=== PATIENT | female | born 1955 | race Caucasian/White ===

== ENCOUNTER → 2020-10-21 | Outpatient (CLI) | payer OTHER | END | disposition home or self-care (01) | LOC: LAB SHORT 08:20 → LAB 08:20 | DX: R39.15 Urgency of urination (principal) | CPT/HCPCS: 87086; 87147 ==

== ENCOUNTER → 2021-02-25 | Outpatient (CLI) | payer OTHER ==
[2021-02-27 09:11] LABS: Stool Occult Bld Immuno 1 Negative (NEGATIVE)
== END | disposition home or self-care (01) ==
LOC: LAB SHORT 14:04
PROVIDERS: Family Medicine
DX: Z12.11 Encounter for screening for malignant neoplasm of colon (principal)
CPT/HCPCS: G0328

== ENCOUNTER → 2021-04-17 | Outpatient (CLI) | payer OTHER | LOC: LAB 15:30 → LAB SHORT 15:30 | DX: N30.01 Acute cystitis with hematuria (principal) | CPT/HCPCS: 87086; 87147 ==

== ENCOUNTER → 2021-06-04 | Outpatient (CLI) | payer OTHER | END | disposition home or self-care (01) | LOC: LAB SHORT 15:49 | DX: N12 Tubulo-interstitial nephritis, not specified as acute or chronic (principal); R82.90 Unspecified abnormal findings in urine | CPT/HCPCS: 87077; 87086; 87186 ==

== ENCOUNTER → 2021-06-07 | Outpatient (CLI) | payer OTHER ==
[2021-06-07 09:54] LABS: BASOPHILS ABSOLUTE AUTO 0.06 K/mm3 (0.00-0.23); BASOPHILS PERCENT AUTO 0 % (0-2); EOSINOPHILS ABSOLUTE AUTO 0.01 K/mm3 (0.00-0.68); EOSINOPHILS PERCENT AUTO 0 % (0-6); Hematocrit 40.4 % (33.0-51.0); Hemoglobin 13.8 g/dL (11.5-16.0); Mean Corpuscular HGB 29.7 pg (26.0-34.0); Mean Corpuscular HGB Conc 34.2 g/dL (31.5-36.5); Mean Corpuscular Volume 87 fL (80-100); Mean Platelet Volume 11.6 fL (9.1-12.4); Platelet Count 179 K/mm3 (150-400); RDW Coefficient Variation 13.2 % (11.7-14.2); RDW Standard Deviation 41.9 fL (35.1-46.3); Red Blood Cell Count 4.64 M/mm3 (3.80-5.20); White Blood Cell Count 17.12 K/mm3 (4.00-11.30)
[2021-06-07 09:57] LABS: IMMATURE GRAN PERCENT AUTO 1 % (0-1); LYMPHOCYTES ABSOLUTE AUTO 1.07 K/mm3 (0.84-5.20); LYMPHOCYTES PERCENT AUTO 6 % (21-46); MONOCYTES ABSOLUTE AUTO 1.24 K/mm3 (0.16-1.47); MONOCYTES PERCENT AUTO 7 % (4-13); NEUTROPHILS ABSOLUTE AUTO 14.54 K/mm3 (1.96-9.15); NEUTROPHILS PERCENT AUTO 85 % (41-73)
[2021-06-07 10:05] LABS: Albumin, Blood 2.4 g/dL (3.4-5.0); Albumin/Globulin Ratio 0.5 (0.8-1.8); Bilirubin, Total 0.9 mg/dL (0.1-1.0); Bun/Creatinine Ratio 17.7 (12.0-20.0); Calcium, Blood 10.1 mg/dL (8.5-10.1); Creatinine, Blood 1.13 mg/dL (0.40-1.00); Globulin, Blood 5.3 g/dL (2.2-4.0); Potassium, Blood 3.3 mmol/L (3.5-5.5); Total Protein, Blood 7.7 g/dL (6.4-8.2)
== END | disposition home or self-care (01) ==
LOC: LAB 08:54 → LAB SHORT 08:54
PROVIDERS: Nurse Practitioner Family
DX: N12 Tubulo-interstitial nephritis, not specified as acute or chronic (principal)
CPT/HCPCS: 80053; 85025

== ENCOUNTER → 2022-06-16 | Outpatient (CLI) | payer OTHER | LOC: LAB 13:40 → LAB SHORT 13:40 | DX: N30.00 Acute cystitis without hematuria (principal) | CPT/HCPCS: 87077; 87086; 87186 ==

== ENCOUNTER → 2022-08-02 | Outpatient (CLI) | payer OTHER | END | disposition home or self-care (01) | LOC: LAB 17:16 → LAB SHORT 17:16 | DX: R39.15 Urgency of urination (principal) | CPT/HCPCS: 87077; 87086; 87147; 87186 ==

== ENCOUNTER → 2022-08-12 | Outpatient (CLI) | payer OTHER | END | disposition home or self-care (01) | LOC: LAB 11:42 → LAB SHORT 11:42 | DX: N39.0 Urinary tract infection, site not specified (principal) | CPT/HCPCS: 87086; 87147 ==

== ENCOUNTER → 2023-05-27 | Outpatient (CLI) | payer OTHER | END | disposition home or self-care (01) | LOC: LAB SHORT 14:55 → LAB 14:55 | DX: R35.0 Frequency of micturition (principal) | CPT/HCPCS: 87086 ==

== ENCOUNTER → 2023-07-13 | Outpatient (CLI) | payer OTHER | END | disposition home or self-care (01) | LOC: LAB SHORT 09:27 → LAB 09:27 | DX: R30.0 Dysuria (principal) | CPT/HCPCS: 87086 ==

== ENCOUNTER → 2023-09-24 | Outpatient (CLI) | payer OTHER | END | disposition home or self-care (01) | LOC: LAB 11:52 → LAB SHORT 11:52 | DX: R30.0 Dysuria (principal); R35.0 Frequency of micturition; R31.9 Hematuria, unspecified | CPT/HCPCS: 87086; 87186 ==

== ENCOUNTER → 2024-06-15 | Outpatient (CLI) | payer OTHER ==
[2024-06-15 14:50] LABS: Stool Occult Bld Immuno 1 Negative (NEGATIVE)
== END ==
LOC: LAB SHORT 12:18 → LAB 12:18
PROVIDERS: Family Medicine
DX: Z12.11 Encounter for screening for malignant neoplasm of colon (principal)
CPT/HCPCS: G0328

== ENCOUNTER 2025-03-11 05:59 | Emergency (ER) | payer OTHER ==
[~2025-03-11] VITALS: Ht 162.6 cm; Wt 77.6 kg
[2025-03-11] MEDS ORDERED: AMLO5 PO (06:19)
[2025-03-11] MEDS ORDERED: OMEP20ER PO (06:19)
[2025-03-11] MEDS ORDERED: OLME20 PO (06:19)
[2025-03-11] MEDS ORDERED: OXYB5 PO (06:20)
[2025-03-11] MEDS ORDERED: TRAM50 (06:22)
[2025-03-11 06:26] LABS: BASOPHILS ABSOLUTE AUTO 0.04 K/mm3 (0.00-0.23); BASOPHILS PERCENT AUTO 1 % (0-2); EOSINOPHILS ABSOLUTE AUTO 0.39 K/mm3 (0.00-0.68); EOSINOPHILS PERCENT AUTO 6 % (0-6); Hematocrit 39.4 % (33.0-51.0); Hemoglobin 13.1 g/dL (11.5-16.0); IMMATURE GRAN ABSOLUTE AUTO 0.01 K/mm3 (0.00-0.10); IMMATURE GRAN PERCENT AUTO 0 % (0-1); LYMPHOCYTES ABSOLUTE AUTO 2.24 K/mm3 (0.84-5.20); LYMPHOCYTES PERCENT AUTO 37 % (21-46); MONOCYTES ABSOLUTE AUTO 0.55 K/mm3 (0.16-1.47); MONOCYTES PERCENT AUTO 9 % (4-13); Mean Corpuscular HGB Conc 33.2 g/dL (31.5-36.5); Mean Corpuscular Volume 85 fL (80-100); NEUTROPHILS ABSOLUTE AUTO 2.90 K/mm3 (1.96-9.15); NEUTROPHILS PERCENT AUTO 47 % (41-73); NRBC ABSOLUTE 0.00 K/mm3 (0.00-0.02); NRBC Auto 0.0 /100 WBC (0.0-0.2); Platelet Count 194 K/mm3 (150-400); RDW Coefficient Variation 14.6 % (11.7-14.2); RDW Standard Deviation 45.3 fL (35.1-46.3)
[2025-03-11 06:44] LABS: Alanine Aminotransfer (ALT/SGP 20.0 U/L (12-78); Albumin, Blood 3.4 g/dL (3.4-5.0); Albumin/Globulin Ratio 0.9 (0.8-1.8); Anion Gap 7.0 mmol/L (3-11); Aspartate Aminotrans (AST/SGOT 16.0 U/L (12-37); Bilirubin, Total 0.5 mg/dL (0.1-1.0); Blood Urea Nitrogen 25.0 mg/dL (8-24); CO2, Blood 26.0 mmol/L (21-32); Calcium, Blood 9.6 mg/dL (8.5-10.1); Chloride, Blood 109.0 mmol/L (98-108); Creatinine, Blood 0.89 mg/dL (0.40-1.00); Globulin, Blood 3.6 g/dL (2.2-4.0); Glucose, Blood 90.0 mg/dL (70-99); Potassium, Blood 3.7 mmol/L (3.5-5.5); Sodium, Blood 138.0 mmol/L (136-145); Total Protein, Blood 7.0 g/dL (6.4-8.2)
[2025-03-11 09:50] VITALS: BP 137/84
== END 2025-03-11 10:30 | disposition home or self-care (01) ==
LOC: ER 05:59
PROVIDERS: Emergency Medicine
DX: R42 Dizziness and giddiness (principal); K44.9 Diaphragmatic hernia without obstruction or gangrene; K80.20 Calculus of gallbladder without cholecystitis without obstruction; I10 Essential (primary) hypertension; K21.9 Gastro-esophageal reflux disease without esophagitis; Z88.0 Allergy status to penicillin; Z79.899 Other long term (current) drug therapy
CPT/HCPCS: 71045; 71260; 80053; 83880; 84484; 85025; 93005; 93010; 99284-25; A9270; Q9967

== ENCOUNTER → 2025-04-07 | Outpatient (CLI) | payer OTHER ==
[~2025-04-07] MED LIST: AMLO5 PO; ATOR10 PO; Diclofenac Pota50 MG PO; OLME20 PO; OMEP20ER PO; OXYB5 PO; TRAM50
[2025-04-09 16:11] LABS: Stool Occult Bld Immuno 1 Negative (NEGATIVE)
== END ==
LOC: LAB SHORT 13:08 → LAB 13:08
PROVIDERS: Family Medicine
DX: Z12.11 Encounter for screening for malignant neoplasm of colon (principal)
CPT/HCPCS: G0328

== ENCOUNTER 2025-04-11 12:50 | Day surgery (SDC) | payer OTHER ==
[2025-04-11] VITALS (12 sets, daily range): BP systolic 114–179; BP diastolic 57–111
[~2025-04-11] VITALS: Ht 165.1 cm; Wt 79.4 kg
[~2025-04-11 12:50] MED LIST changes: -ATOR10 PO; -Diclofenac Pota50 MG PO
[2025-04-11] MEDS ORDERED: ATOR10 PO (13:12)
[2025-04-11] MEDS ORDERED: Diclofenac Pota50 MG PO (13:14)
--- NOTE | 2025-04-11 13:30 | NUR ---
History, Chart, Medications and Allergies reviewed before start of procedure. Pre-Op teaching done. Pt verbalizes understanding. Patient confirms NPO status and agrees with scheduled surgery.
--- NOTE | 2025-04-11 14:13 | NUR ---
04/11/25 1413 Linda Alfaro CONFIRMED AND REVIEWED H&P, MEDCICATIONS, ALLERGIES, MEDICAL HISTORY, RESPIRATORY HISTORY, VITAL SIGNS, 3-LEAD EKG, CONSENTS, AND PHYSICIAN ORDERS. PATIENT CONFIRMS NPO STATUS AND AGREES WITH SCHEDULED PROCEDURE. MONITOR INTACT WITH CONTINUOUS PULSE OXIMETRY, CAPNOGRAPHY, 3-LEAD EKG, INTERMITTENT BP. SUPPLEMENTAL O2 TO BE TITRATED THROUGHOUT PROCEDURE TO MAINTAIN O2 SATURATION ABOVE 90%. PATIENT DETERMINED TO BE ASA APPROPRIATE FOR PROPOFOL SEDATION PRIOR TO START OF PROCEDURE BY DR. CANELA.
[2025-04-11] MEDS ORDERED: Benzocaine Oral Spray 0.5ML UD ONE (14:16)
--- NOTE | 2025-04-11 15:10 | NUR ---
Patient up to Ambulate independently. Gait steady. Discharge instructions reviewed with patient. Patient verbalizes understanding. Copy given to patient to take home, WE[facility] FAMILY. Patient States Post-Procedure ride home has been arranged. Discharged via wheelchair to private car for ride home. PT TOLERATING PO, REPORTS READY TO GO HOME.
== END 2025-04-11 15:10 | disposition home or self-care (01) ==
LOC: ORD 12:50 → ORSCMMR 12:50 → ORD 15:10 → ORSCSDS 15:15
PROVIDERS: Surgery
PROC: 0DJ08ZZ Inspection of Upper Intestinal Tract, Via Natural or Artificial Opening Endoscopic (ICD-10-PCS; principal; 2025-04-11 14:30)
DX: K44.9 Diaphragmatic hernia without obstruction or gangrene (principal); K21.9 Gastro-esophageal reflux disease without esophagitis; G47.33 Obstructive sleep apnea (adult) (pediatric); E78.5 Hyperlipidemia, unspecified; Z87.891 Personal history of nicotine dependence; Z79.899 Other long term (current) drug therapy
CPT/HCPCS: A9270; J2704; J7120

== ENCOUNTER 2025-04-30 08:12 | Day surgery (SDC) | payer OTHER ==
[~2025-04-30] VITALS: Ht 165.1 cm; Wt 80.7 kg
[2025-04-30] VITALS (13 sets, daily range): BP systolic 123–137; BP diastolic 74–88
[~2025-04-30 08:12] MED LIST changes: +ATOR20 PO; +CALCIUM 500 MG1 EAC7 PO; +Diclofenac Pota50 MG PO; +FentaNYL Citrate 50 MCG/ML 2 ML Injection ONE; +MULTI-VITAMIN1 EAC2 PO; +Midazolam HCl 1MG / ML 2ML Vial ONE; +THERA-D2000 UNIT PO; -TRAM50; +TRAM50 PO
[2025-04-30] MEDS ORDERED: Bupivacaine 0.25% Epi 1:200000 30 ML Vial ONE (08:55)
[2025-04-30] MEDS ORDERED: Rocuronium Bromide 10 MG/ML 5ML Injection IV ONE ×2 (09:00→10:25)
[2025-04-30] MEDS ORDERED: Ondansetron HCl 2 MG / ML 2ML Vial ONE (09:32)
[2025-04-30] MEDS ORDERED: Dexamethasone Sod Phos 10 MG/ML 1ML VIAL ONE (09:32)
[2025-04-30] MEDS ORDERED: ePHEDrine Sulfate 50 MG/ML 1ML Injection ONE (09:45)
--- NOTE | 2025-04-30 09:55 | NUR ---
04/30/25 0955 Kindra Murillo NO PREOP ANTIBIOTICS ORDERED PER .
[2025-04-30] MEDS ORDERED: Sugammadex Sodium 200 MG/2ML SDV (100 MG/ML) ONE (10:24)
[2025-04-30] MEDS ORDERED: Ketorolac Tromethamine 30mg Vial ONE (10:25)
[2025-04-30] MEDS ORDERED: Albuterol 2.5 MG/3 ML VIAL INH PRN (11:10)
[2025-04-30] MEDS ORDERED: HYDROmorphone HCl/Pf 1MG SYR IV PRN ×3 (11:15→12:15)
[2025-04-30] MEDS ORDERED: Ondansetron HCl 2 MG / ML 2ML Vial IV PRN ×2 (11:15→12:15)
[2025-04-30] MEDS ORDERED: FentaNYL Citrate 50 MCG/ML 2 ML Injection IV PRN ×2 (11:15)
[2025-04-30] MEDS ORDERED: HYDROmorphone HCl/Pf 1MG SYR ONE (11:16)
[2025-04-30] MEDS ORDERED: Prochlorperazine Edisylate 10 mg Vial IV PRN (12:15)
[2025-04-30] MEDS ORDERED: FentaNYL Citrate 50 MCG/ML 2 ML Injection ONE (12:30)
--- NOTE | 2025-04-30 13:13 | NUR ---
PT ARRIVED TO RM 224 FROM PACU. TRANSFERRED PT FROM [facility] TO BED. ORIENTED TO USE OF CALL LIGHT. LAP INCISIONS TO ABD X4 W TISS ADHESIVE CDI. VSS. LCA. HRR. ABD SOFT. PROVIDED APPLE JUICE AND WATER. CALL LIGHT IN REACH.
--- NOTE | 2025-04-30 14:12 | NUR ---
TURNED OVER CARE TO ADOLFO Stephenson RN.
--- NOTE | 2025-04-30 19:36 | NUR ---
SHIFT SUMMARY SINCE ASSUMPTION OF CARE, PT HAS DONE WELL. UP IN ROOM & UP TO USE BATHROOM x 2. PAIN IMPROVED SINCE OXY WAS GIVEN. ABD SOFT.
[2025-05-01 04:41] VITALS: BP 142/88
--- NOTE | 2025-05-01 05:20 | NUR ---
NOC SUMMARY- PT PAIN MANAGED WELL. PT HAS BEEN AMBULATORY AND IS USING BATHROOM INDEPENDANTLY. PT LAP SITES C/D/I. PT IS EAGER TO GO HOME. PT TOLERATING PO INTAKE. CALL LIGHT IN REACH.
[2025-05-01 06:56] LABS: Hematocrit 38.4 % (33.0-51.0); Hemoglobin 12.4 g/dL (11.5-16.0)
[2025-05-01 07:47] VITALS: BP 131/87
[2025-05-01] MEDS ORDERED: Enoxaparin 40 MG/0.4 ML SYR SC SCH (09:00)
[2025-05-01] MEDS ORDERED: OXYC5 PO (10:07)
--- NOTE | 2025-05-01 10:35 | NUR ---
DISCHARGE NOTE PT IS A/OX4, VSS. TOLERATING INTAKE W/ NO N/V, FOLLOWING DIET RESTRICTIONS. VOIDING WELL. SURGICAL SITES C/D/I. PROVIDED DC EDUCATION, PT AND SPOUSE VERBALIZED UNDERSTANDING OF EDUCATION. MEDICATIONS SENT TO PHARMACY BY SURGEON, PT VERBALIZED UNDERSTANDING. ESCORTED OUT VIA WC.
== END 2025-05-01 10:25 | disposition home or self-care (01) ==
LOC: ORSCMMR 08:12 → ORD 09:30 → ORSCMMR 09:30 → SURS 12:55 → ORSCMMR 05-01 10:25
PROVIDERS: Surgery
PROC: 8E0W4CZ Robotic Assisted Procedure of Trunk Region, Percutaneous Endoscopic Approach (ICD-10-PCS; principal; 2025-04-30 09:30)
PROC: 0BUT4JZ Supplement Diaphragm with Synthetic Substitute, Percutaneous Endoscopic Approach (ICD-10-PCS; principal; 2025-04-30 09:30)
DX: K44.9 Diaphragmatic hernia without obstruction or gangrene (principal); K21.9 Gastro-esophageal reflux disease without esophagitis; I10 Essential (primary) hypertension; E78.5 Hyperlipidemia, unspecified; Z79.899 Other long term (current) drug therapy; Z87.891 Personal history of nicotine dependence
CPT/HCPCS: 36415; 85014; 85018; A9270; C1781; J1100; J1171; J1650; J1885; J2250; J2405; J2704; J3010; J7120

== ENCOUNTER 2025-06-12 14:13 | Observation (INO) | payer OTHER ==
[~2025-06-12] VITALS: Ht 162.6 cm; Wt 75.0 kg
[~2025-06-12 14:13] MED LIST changes: -FentaNYL Citrate 50 MCG/ML 2 ML Injection ONE; -Midazolam HCl 1MG / ML 2ML Vial ONE; +OXYC5 PO
[2025-06-12] MEDS ORDERED: NS 1,000 ML IV SCH ×2 (14:30→23:25)
[2025-06-12 14:50] LABS: BASOPHILS ABSOLUTE AUTO 0.06 K/mm3 (0.00-0.23); BASOPHILS PERCENT AUTO 1 % (0-2); EOSINOPHILS ABSOLUTE AUTO 0.21 K/mm3 (0.00-0.68); EOSINOPHILS PERCENT AUTO 3 % (0-6); Hematocrit 38.6 % (33.0-51.0); Hemoglobin 12.6 g/dL (11.5-16.0); IMMATURE GRAN ABSOLUTE AUTO 0.02 K/mm3 (0.00-0.10); IMMATURE GRAN PERCENT AUTO 0 % (0-1); LYMPHOCYTES ABSOLUTE AUTO 1.87 K/mm3 (0.84-5.20); LYMPHOCYTES PERCENT AUTO 29 % (21-46); MONOCYTES ABSOLUTE AUTO 0.49 K/mm3 (0.16-1.47); MONOCYTES PERCENT AUTO 8 % (4-13); Mean Corpuscular HGB Conc 32.6 g/dL (31.5-36.5); Mean Corpuscular Volume 87 fL (80-100); NEUTROPHILS ABSOLUTE AUTO 3.80 K/mm3 (1.96-9.15); NEUTROPHILS PERCENT AUTO 59 % (41-73); NRBC ABSOLUTE 0.00 K/mm3 (0.00-0.02); NRBC Auto 0.0 /100 WBC (0.0-0.2); Platelet Count 205 K/mm3 (150-400); RDW Coefficient Variation 13.4 % (11.7-14.2); RDW Standard Deviation 42.3 fL (35.1-46.3)
[2025-06-12 15:17] LABS: Alanine Aminotransfer (ALT/SGP 18.0 U/L (12-78); Albumin, Blood 3.5 g/dL (3.4-5.0); Albumin/Globulin Ratio 1.0 (0.8-1.8); Anion Gap 5.0 mmol/L (3-11); Aspartate Aminotrans (AST/SGOT 15.0 U/L (12-37); Bilirubin, Total 0.7 mg/dL (0.1-1.0); Blood Urea Nitrogen 12.0 mg/dL (8-24); CO2, Blood 28.0 mmol/L (21-32); Calcium, Blood 10.6 mg/dL (8.5-10.1); Chloride, Blood 108.0 mmol/L (98-108); Creatinine, Blood 0.73 mg/dL (0.40-1.00); Globulin, Blood 3.6 g/dL (2.2-4.0); Glucose, Blood 96.0 mg/dL (70-99); Potassium, Blood 3.8 mmol/L (3.5-5.5); Sodium, Blood 137.0 mmol/L (136-145); Total Protein, Blood 7.1 g/dL (6.4-8.2)
[2025-06-12 18:02] VITALS: BP 159/94
--- NOTE | 2025-06-12 18:15 | NUR ---
INTO SDS VIA WHEELCHAIR. HISTORY AND ALLERGIES REVIEWED. BP 166/91, HR 60'S SR. LUNGS CLEAR-PT DENIES SOB. SATS >90% ON RA. NPO STATUS CONFIRMED.
[2025-06-12 18:18] VITALS: BP 166/91
[2025-06-12] MEDS ORDERED: SuccINYLCHOLINE Chloride 100 MG/5 ML 5MLSYR ONE (18:22)
--- NOTE | 2025-06-12 18:28 | NUR ---
#20 PIV TO LEFT AC SITE CLEAR/FLUSHES WELL.
--- NOTE | 2025-06-12 18:42 | NUR ---
06/12/[address] SEE ANESTHESIA RECORDS.
[2025-06-12 19:46] VITALS: BP 132/80
[2025-06-12 20:47] VITALS: BP 148/92
[2025-06-12] MEDS ORDERED: Ondansetron HCl 2 MG / ML 2ML Vial IV ONE (21:05)
--- NOTE | 2025-06-12 21:48 | NUR ---
PT HAS BEEN UNABLE TO TOLERATE ANY CLEAR LIQUIDS. DR. SMITH NOTIFIED AND ZOFRAN GIVEN PER ORDER WITHOUT ANY HELP WITH TOLERATING CLEAR LIQUIDS- DR. SMITH NOTIFIED AGAIN. PLAN TO ADMIT PER HOSPITALIST SERVICE.
[2025-06-12] MEDS ORDERED: Ondansetron HCl 2 MG / ML 2ML Vial IV PRN (23:25)
[2025-06-13 03:29] VITALS: BP 114/68
[2025-06-13 04:49] LABS: BASOPHILS ABSOLUTE AUTO 0.05 K/mm3 (0.00-0.23); BASOPHILS PERCENT AUTO 1 % (0-2); EOSINOPHILS ABSOLUTE AUTO 0.24 K/mm3 (0.00-0.68); EOSINOPHILS PERCENT AUTO 4 % (0-6); Hematocrit 37.6 % (33.0-51.0); Hemoglobin 12.2 g/dL (11.5-16.0); IMMATURE GRAN ABSOLUTE AUTO 0.01 K/mm3 (0.00-0.10); IMMATURE GRAN PERCENT AUTO 0 % (0-1); LYMPHOCYTES ABSOLUTE AUTO 1.73 K/mm3 (0.84-5.20); LYMPHOCYTES PERCENT AUTO 25 % (21-46); MONOCYTES ABSOLUTE AUTO 0.71 K/mm3 (0.16-1.47); MONOCYTES PERCENT AUTO 10 % (4-13); Mean Corpuscular HGB Conc 32.4 g/dL (31.5-36.5); Mean Corpuscular Volume 87 fL (80-100); NEUTROPHILS ABSOLUTE AUTO 4.12 K/mm3 (1.96-9.15); NEUTROPHILS PERCENT AUTO 60 % (41-73); NRBC ABSOLUTE 0.00 K/mm3 (0.00-0.02); NRBC Auto 0.0 /100 WBC (0.0-0.2); Platelet Count 185 K/mm3 (150-400); RDW Coefficient Variation 13.5 % (11.7-14.2); RDW Standard Deviation 43.3 fL (35.1-46.3)
[2025-06-13 05:17] LABS: Alanine Aminotransfer (ALT/SGP 15.0 U/L (12-78); Albumin, Blood 3.3 g/dL (3.4-5.0); Albumin/Globulin Ratio 1.1 (0.8-1.8); Anion Gap 7.0 mmol/L (3-11); Aspartate Aminotrans (AST/SGOT 13.0 U/L (12-37); Bilirubin, Total 0.6 mg/dL (0.1-1.0); Blood Urea Nitrogen 9.0 mg/dL (8-24); CO2, Blood 27.0 mmol/L (21-32); Calcium, Blood 10.2 mg/dL (8.5-10.1); Chloride, Blood 111.0 mmol/L (98-108); Creatinine, Blood 0.72 mg/dL (0.40-1.00); Globulin, Blood 3.1 g/dL (2.2-4.0); Glucose, Blood 89.0 mg/dL (70-99); Potassium, Blood 3.8 mmol/L (3.5-5.5); Sodium, Blood 141.0 mmol/L (136-145); Total Protein, Blood 6.4 g/dL (6.4-8.2)
--- NOTE | 2025-06-13 06:37 | NUR ---
SHIFT SUMMARY PT HAS BEEN UNABLE TO KEEP ANY FLUID DOWN S/P EGD. DIET CHANGED TO NPO AND IVF INITIATED PER ORDER. PT MEDICATED WITH ZOFRAN X1 PER EMAR. WHEN PT NPO, DENIES NAUSEA, BUT DOES C/O SOME ABDOMINAL DISCOMFORT, "MAYBE GAS PAIN" PER PT. PT NOW INDEPENDENT IN ROOM WITH STEADY GAIT, SHE HAD BEEN WEAK AND DIZZY AFTER PROCEDURE. PT SLEPT INTERMITTENTLY DURING THE NIGHT.
[2025-06-13] MEDS ORDERED: Dexamethasone Sod Phos 10 MG/ML 1ML VIAL IV ONE (06:50)
[2025-06-13 08:07] VITALS: BP 126/79
[2025-06-13 16:23] VITALS: BP 123/85
--- NOTE | 2025-06-13 16:47 | NUR ---
SHIFT SUMMARY: PATIENT IS A&OX4/INDEPENDENT. SHE HAS TOLERATED CLEAR LIQUIDS THIS SHIFT; NO JELLO PER NIX AND CLEARS ONLY FOR NOW. PATIENT IN HER ROOM, ALERT, NO SIGNS OR SYMPTOMS OF DISTRESS, PLAN OF CARE ONGOING. POSSIBLE D/C TOMORROW 06/14/25.
[2025-06-13 20:00] VITALS: BP 115/80
[2025-06-14 04:26] VITALS: BP 119/71
[2025-06-14 05:30] LABS: BASOPHILS ABSOLUTE AUTO 0.01 K/mm3 (0.00-0.23); BASOPHILS PERCENT AUTO 0 % (0-2); EOSINOPHILS ABSOLUTE AUTO 0.00 K/mm3 (0.00-0.68); EOSINOPHILS PERCENT AUTO 0 % (0-6); Hematocrit 37.3 % (33.0-51.0); Hemoglobin 12.2 g/dL (11.5-16.0); IMMATURE GRAN ABSOLUTE AUTO 0.08 K/mm3 (0.00-0.10); IMMATURE GRAN PERCENT AUTO 1 % (0-1); LYMPHOCYTES ABSOLUTE AUTO 1.35 K/mm3 (0.84-5.20); LYMPHOCYTES PERCENT AUTO 10 % (21-46); MONOCYTES ABSOLUTE AUTO 0.70 K/mm3 (0.16-1.47); MONOCYTES PERCENT AUTO 5 % (4-13); Mean Corpuscular HGB Conc 32.7 g/dL (31.5-36.5); Mean Corpuscular Volume 87 fL (80-100); NEUTROPHILS ABSOLUTE AUTO 10.84 K/mm3 (1.96-9.15); NEUTROPHILS PERCENT AUTO 84 % (41-73); NRBC ABSOLUTE 0.00 K/mm3 (0.00-0.02); NRBC Auto 0.0 /100 WBC (0.0-0.2); Platelet Count 214 K/mm3 (150-400); RDW Coefficient Variation 13.6 % (11.7-14.2); RDW Standard Deviation 42.6 fL (35.1-46.3)
[2025-06-14 05:35] LABS: Anion Gap 9.0 mmol/L (3-11); Blood Urea Nitrogen 16.0 mg/dL (8-24); CO2, Blood 23.0 mmol/L (21-32); Calcium, Blood 10.5 mg/dL (8.5-10.1); Chloride, Blood 110.0 mmol/L (98-108); Creatinine, Blood 0.64 mg/dL (0.40-1.00); Glucose, Blood 126.0 mg/dL (70-99); Potassium, Blood 4.0 mmol/L (3.5-5.5); Sodium, Blood 138.0 mmol/L (136-145)
[2025-06-14] MEDS ORDERED: Dexamethasone Sodium Phosphate 4 MG/ML 1ML Vial IV ONE (06:00)
--- NOTE | 2025-06-14 06:17 | NUR ---
SHIFT SUMMARY PT TOLERATING CLEAR LIQUIDS WITHOUT ANY EMESIS. PT STATES SOME VAGUE NAUSEA AND FEELING OF "FULLNESS" WITH THE CLEAR LIQUIDS. ADDITIONAL DOSE OF IV DECADRON GIVEN THIS AM PER ORDER, AND DIET TO ADVANCE TO FULL LIQUIDS WITH BREAKFAST. PT VERBALIZES UNDERSTANDING OF FULL LIQUID DIET- HAD BEEN ON THIS DIET PRIOR TO ADMISSION. PT INDEPENDENT IN ROOM. SLEPT LONG INTERVALS DURING THE NIGHT.
[2025-06-14 07:54] VITALS: BP 139/79
[2025-06-14] MEDS ORDERED: ONDA4ODT MM (12:54)
--- NOTE | 2025-06-14 13:05 | NUR ---
DISCHARGE NOTE: IV REMOVED AND PATIENT GOT DRESSED/COLLECTED BELONGINGS. WENT OVER DISCHARGE WITH THE PATIENT AND AT BEDSIDE. NO SIGNS OR SYMPTOMS OF DISTRESS WITH DISCHARGE.
== END 2025-06-14 13:58 | disposition home or self-care (01) ==
LOC: ER 14:13 → SURS 14:14 → MEDS 14:14 → ENPENDDIS 06-14 12:25 → MEDS 06-14 13:58
PROVIDERS: Emergency Medicine; Internal Medicine; Student in an Organized Health Care Education/Training Program; ADMIT Internal Medicine Gastroenterology
PROC: 0D758ZZ Dilation of Esophagus, Via Natural or Artificial Opening Endoscopic (ICD-10-PCS; principal; 2025-06-12 17:45)
PROC: 0DC58ZZ Extirpation of Matter from Esophagus, Via Natural or Artificial Opening Endoscopic (ICD-10-PCS; principal; 2025-06-12 17:45)
DX: K22.2 Esophageal obstruction (principal); T18.128A Food in esophagus causing other injury, initial encounter; R11.10 Vomiting, unspecified; K21.9 Gastro-esophageal reflux disease without esophagitis; I10 Essential (primary) hypertension; E78.5 Hyperlipidemia, unspecified; K57.30 Diverticulosis of large intestine without perforation or abscess without bleeding; Z87.891 Personal history of nicotine dependence; Z79.899 Other long term (current) drug therapy; Z88.0 Allergy status to penicillin; Z90.49 Acquired absence of other specified parts of digestive tract
CPT/HCPCS: 36415; 80048; 80053; 83690; 83880; 85025; 96374; 96376; 99284; C1726; G0378; J0330; J1100; J2405; J2704; J7030; J7120

== ENCOUNTER 2025-07-03 10:49 | Day surgery (SDC) | payer OTHER ==
[~2025-07-03] VITALS: Ht 159.5 cm; Wt 71.9 kg
[~2025-07-03 10:49] MED LIST changes: +ONDA4ODT MM; +PRED FORTE5 M1 RIGHTEYE
[2025-07-03 11:45] VITALS: BP 149/99
--- NOTE | 2025-07-03 11:54 | NUR ---
07/03/25 1154 Sreedhar Ruth History, Chart, Medications and Allergies reviewed before start of procedure.MONITOR INTACT WITH CONTINUOUS PULSE OXIMETRY, CONTINUOUS END TITAL CO2, 3-LEAD EKG AND INTERMITTENT BLOOD PRESSURE.O2 VIA POM INTACT THROUGHOUT SEDATION/PROCEDURE.See Anesthesia record.
--- NOTE | 2025-07-03 12:03 | NUR ---
History, Chart, Medications and Allergies reviewed before start of procedure. Patient up to Ambulate independently. Gait steady. Pre-Op teaching done. Pt verbalizes understanding. Patient confirms NPO status and agrees with scheduled surgery. Patient States Post-Procedure ride home has been arranged.
[2025-07-03 12:30] VITALS: BP 122/94
[2025-07-03 12:43] VITALS: BP 148/99
--- NOTE | 2025-07-03 12:52 | NUR ---
Discharge instructions reviewed with patient. Patient verbalizes understanding. Copy given to patient to take home.Patient vital signs returned to baseline. Discharged via wheelchair to private car for ride home.
== END 2025-07-03 23:00 | disposition home or self-care (01) ==
LOC: ORSCMMR 10:49 → ORD 12:00 → ORSCMMR 23:00
PROVIDERS: Surgery
PROC: 0D758ZZ Dilation of Esophagus, Via Natural or Artificial Opening Endoscopic (ICD-10-PCS; principal; 2025-07-03 12:00)
DX: R13.19 Other dysphagia (principal); K22.2 Esophageal obstruction; Z98.890 Other specified postprocedural states; K44.9 Diaphragmatic hernia without obstruction or gangrene; K21.9 Gastro-esophageal reflux disease without esophagitis; I10 Essential (primary) hypertension; E78.5 Hyperlipidemia, unspecified; Z79.899 Other long term (current) drug therapy; Z87.891 Personal history of nicotine dependence
CPT/HCPCS: C1726; J2704; J7120

== ENCOUNTER 2025-08-19 07:38 | Day surgery (SDC) | payer OTHER ==
[~2025-08-19] VITALS: Ht 160 cm; Wt 72.4 kg
[2025-08-19] VITALS (14 sets, daily range): BP systolic 120–136; BP diastolic 67–84
--- NOTE | 2025-08-19 08:19 | NUR ---
History, Chart, Medications and Allergies reviewed before start of procedure. Lungs clear T/O to Auscultation. Patient confirms NPO status and agrees with scheduled surgery. Pre-Op teaching done. Pt verbalizes understanding. Patient reports completing Chlorhexadine shower X2 prior to admission to hospital.
[2025-08-19] MEDS ORDERED: Bupivacaine 0.5% W/EPI 1:200000 SDV 30 ML Vial ONE (08:56)
[2025-08-19] MEDS ORDERED: FentaNYL Citrate 50 MCG/ML 2 ML Injection ONE ×3 (09:00→11:52)
[2025-08-19] MEDS ORDERED: Rocuronium Bromide 10 MG/ML 5ML Injection IV ONE ×2 (09:03→09:45)
[2025-08-19] MEDS ORDERED: Ondansetron HCl 2 MG / ML 2ML Vial IV PRN (10:05)
[2025-08-19] MEDS ORDERED: HYDROmorphone HCl/Pf 1MG SYR IV PRN ×3 (10:05→11:40)
[2025-08-19] MEDS ORDERED: FentaNYL Citrate 50 MCG/ML 2 ML Injection IV PRN ×2 (10:05)
[2025-08-19] MEDS ORDERED: Ondansetron HCl 2 MG / ML 2ML Vial ONE (10:41)
[2025-08-19] MEDS ORDERED: ePHEDrine Sulfate 50 MG/ML 1ML Injection ONE (10:41)
[2025-08-19] MEDS ORDERED: Dexamethasone Sod Phos 10 MG/ML 1ML VIAL ONE (10:41)
[2025-08-19] MEDS ORDERED: Phenylephrine HCl 100 MCG/ML-NS 10MLSYR (1MG/10ML) ONE (10:41)
[2025-08-19] MEDS ORDERED: Sugammadex Sodium 200 MG/2ML SDV (100 MG/ML) ONE (11:08)
[2025-08-19] MEDS ORDERED: FLU VACC TS2025(65UP)/MF59C/PF 45 MCG/0.5 ML SYRINGE IM SCH (11:35)
[2025-08-19] MEDS ORDERED: Ketorolac Tromethamine 15mg Vial IV PRN (11:40)
--- NOTE | 2025-08-19 18:22 | NUR ---
SUMMARY PT TO UNIT @1230 AXO4. VSS. MILD PAIN NOTED - DIDNT WANT PAIN MEDS UNTIL TOWARDS END OF SHIFT. HAS TOLERATED CLEAR LIQUIDS WELL BUT HAS BEEN HESITANT TO ADVANCE TO FULL LIQUID OF YET. HAS VOIDED. HAS AMBULATED TO BATHROOM MULTIPLE TIMES NOW. LAP SITES X4 CDI. FLUIDS INFUSED. PT TALKED TO DR COREAS ABOUT DISCHARGING TOMORROW PER PT REPORT - PLAN FOR PT TO DC TOMORROW. USING CALL LIGHT APPROPRIATELY.
[2025-08-20 04:50] VITALS: BP 163/92
--- NOTE | 2025-08-20 06:42 | NUR ---
SHIFT SUMMARY POD 1 LAP REVISION FUNDOPLCATION. 4 LAP SITES TO ABDOMEN C/D/I. PAIN MANAGED WELL PER EMAR. PT C/O DECREASED APPETITE THIS SHIFT, DENIES N&V. PT TOLERATING CLEAR LIQUID DIET. PT VOIDING URINE AND INDEPENDENT IN ROOM. PT RESTING IN BED, RESPIRATIONS EVEN AND UNLABORED. CALL LIGHT WITHIN REACH.
[2025-08-20 07:48] VITALS: BP 143/92; BP 152/96
[2025-08-20] MEDS ORDERED: OXAYDO5 M1 PO (11:20)
[2025-08-20] MEDS ORDERED: THERA-D2000 UNIT PO (11:21)
--- NOTE | 2025-08-20 11:41 | NUR ---
DC INSTRUCT REVIEWED. STATED UNDERSTANDING. AMBULATED TO CAR WITH PRINTED INSTRUCT.
== END 2025-08-20 11:45 | disposition home or self-care (01) ==
LOC: ORSCMMR 07:38 → ORD 09:00 → SURS 12:03 → ORSCMMR 08-20 11:45
PROVIDERS: Surgery
PROC: 0DQ44ZZ Repair Esophagogastric Junction, Percutaneous Endoscopic Approach (ICD-10-PCS; principal; 2025-08-19 09:00)
DX: K44.9 Diaphragmatic hernia without obstruction or gangrene (principal); K21.9 Gastro-esophageal reflux disease without esophagitis; Z48.815 Encounter for surgical aftercare following surgery on the digestive system; I10 Essential (primary) hypertension; E78.5 Hyperlipidemia, unspecified; Z79.899 Other long term (current) drug therapy
CPT/HCPCS: A9270; J1100; J2371; J2405; J2704; J3010; J7120